=== PATIENT | male | born 1960 | race Caucasian/White ===

== ENCOUNTER → 2020-12-22 | Outpatient (CLI) | payer BC, SELFPAY ==
--- NOTE | 2020-12-22 | IMM_PTH ---
PATIENT: MARIZOL GOMEZ LOC: [facility] U#:[id number] AGE/SX: 60/M ROOM: RE12/22/[address]: Dr. Flynn Liao MD : 1960 BED: DIS: 12/22/2020 SPEC #: [id number] RECD: 12/23/20 12:27 STATUS: LILIA REOdilia #: [id number] SETH: 12/22/20 00:[address]: Flynn Liao DEPT: IMMUNOHISTOCHEMISTRY RECD BY: Soraida Garcia Tissues: A - PROSTATE RIGHT B - PROSTATE RIGHT C - PROSTATE RIGHT D - PROSTATE LEFT E - PROSTATE LEFT F - PROSTATE LEFT Procedures: 34BE12 (add) P40 (add) 34BE12 (initial) PHYSICIAN & INSTITUTION [place] [id number] SPECIMEN INFORMATION: Tissue Source: A - Right apex, B - Right mid, C - Right base, D - Left apex, E - Left mid, F - Left base Clinical Info: R97.20 Specimen Number: [id number] A-F CPT code: 37938, 94580 x11 METHODOLOGY: Deparaffinized sections of prefer/formalin-fixed tissue or PAP/DQ stained slides are incubated with monoclonal/polyclonal antibodies/oligonucleotide probes. Localization is made via biotin free immunoperoxidase method. Appropriate controls are performed and reacted as expected. Results on target cell population are indicated in the following table: RESULTS: ANTIBODY / CLONE RESULT Block A P40 (BC28) positive 34BE12 (34BE12) positive Block B P40 (BC28) negative 34BE12 (34BE12) negative Block C P40 (BC28) positive 34BE12 (34BE12) positive Block D P40 (BC28) negative 34BE12 (34BE12) negative Block E P40 (BC28) negative 34BE12 (34BE12) negative Block F P40 (BC28) negative 34BE12 (34BE12) negative These tests were developed and their performance characteristics determined by [facility]. They may not have been cleared or approved by the U.S. Food and Drug Administration. The FDA has determined that such clearance or approval is not necessary. The above immunohistochemical/dualISH markers are ordered and reviewed by the Pathologist. INTERPRETATION: A. Right prostate, apex, core biopsy: Focal high-grade prostatic intraepithelial neoplasia (HGPIN). B. Right prostate, mid, core biopsy: Adenocarcinoma. C. Right prostate, base, core biopsy: Negative for malignancy. D. Left prostate, apex, core biopsy: Adenocarcinoma. E. Left prostate, mid, core biopsy: Adenocarcinoma. F. Left prostate, base, core biopsy: Adenocarcinoma. SJ:sujata 12/24/2020
--- NOTE | 2020-12-22 08:00 | PROSBIL_PTH ---
PATIENT: MARIZOL GOMEZ LOC: [facility] U#:[id number] AGE/SX: 60/M ROOM: RE12/22/[address]: Dr. Flynn Liao MD : 1960 BED: DIS: 12/22/2020 SPEC #: [id number] RECD: 12/22/20 11:35 STATUS: LILIA GI #: [id number] SETH: 12/22/20 08:[address]: Flynn Liao DEPT: SURGICAL PATHOLOGY RECD BY: Rosa Jackman Tissues: A - PROSTATE RIGHT B - PROSTATE RIGHT C - PROSTATE RIGHT D - PROSTATE LEFT E - PROSTATE LEFT F - PROSTATE LEFT Procedures: PROSTATE BX HEADER OPERATION: Prostate biopsy PRE-OP DIAGNOSIS: R97.20 TISSUE SUBMITTED: A - Right apex, B - Right mid, C - Right base, D - Left apex, E - Left mid, F - Left base MICROSCOPIC DIAGNOSIS A. Right prostate, apex, core biopsy: Focal high-grade prostatic intraepithelial neoplasia (HGPIN). See comment. B. Right prostate, mid, core biopsy: Prostatic adenocarcinoma. Lyndon grade: 3+3=6 Number of cores involved: 1/2 Proportion of tissue involved: <5% Perineural invasion: Not identified. Greatest tumor length: 0.2 cm, discontinuous Focal high-grade prostatic intraepithelial neoplasia (HGPIN). See comment. C. Right prostate, base, core biopsy: Prostatic tissue, negative for malignancy. See comment. D. Left prostate, apex, core biopsy: A minute focus of prostatic adenocarcinoma. Lyndon grade: 3+3=6 Number of cores involved: 1/2 Proportion of tissue involved: <5% Perineural invasion: Not identified. Greatest tumor length: <0.1 cm. See comment. E. Left prostate, mid, core biopsy: A minute focus of prostatic adenocarcinoma. Tre grade: 3+3=6 Number of cores involved: 1/2 Proportion of tissue involved: <5% Perineural invasion: Not identified. Greatest tumor length: <0.1 cm. Focal high-grade prostatic intraepithelial neoplasia (HGPIN). See comment. F. Left prostate, base, core biopsy: Prostatic adenocarcinoma. Lyndon grade: 3+3=6 Number of cores involved: 2/2 Proportion of tissue involved: ~5% Perineural invasion: Not identified. Greatest tumor length: 0.2 cm Focal high-grade prostatic intraepithelial neoplasia (HGPIN). See comment. SJ:rg 12/24/2020 COMMENT A-F. Immunohistochemistry ([id number]) supports the above diagnosis. MICROSCOPIC DESCRIPTION Slides are reviewed. GROSS DESCRIPTION A - Received is one container designated prostate, right apex. The specimen consists of two elongated fragments of light herndon-white soft tissue each measuring 1.1 cm in length and 0.1 cm in diameter. The specimen is totally submitted in one cassette. B - Received is one container designated prostate, right mid. The specimen consists of two elongated fragments of light herndon-white soft tissue measuring 1 and 1.5 cm in length and 0.1 cm in diameter. The specimen is totally submitted in one cassette. C - Received is one container designated prostate, right base. The specimen consists of two elongated fragments of light herndon-white soft tissue measuring 0.5 and 1 cm in length and 0.1 cm in diameter. The specimen is totally submitted in one cassette. D - Received is one container designated prostate, left apex. The specimen consists of two elongated fragments of light herndon-white soft tissue measuring 0.5 and 1.5 cm in length and 0.1 cm in diameter. The specimen is totally submitted in one cassette. E - Received is one container designated prostate, left mid. The specimen consists of two elongated fragments of light herndon-white soft tissue each measuring 1.2 cm in length and 0.1 cm in diameter. The specimen is totally submitted in one cassette. F - Received is one container designated prostate, left base. The specimen consists of two elongated fragments of light herndon-white soft tissue each measuring 1 cm in length and 0.1 cm in diameter. The specimen is totally submitted in one cassette. / ELIZABETH:sujata 12/22/20 TC:0 CPT: 79374 x6 ADDENDUM ADDENDUM ADDENDUM ADDENDUM ADDENDUM ADDENDUM ADDENDUM ADDENDUM 06/29/2021 15:35 ADDENDUM 06/29/2021 15:35 ADDENDUM 06/29/2021 15:35 ADDENDUM 06/29/2021 15:35 ADDENDUM 06/29/2021 15:35 An order for Oncotype testing was received from Dr. Liao. This necessitated case review, block and slide selection by pathologist at [facility]. Genomic Prostate Score = 23 Results of the complete Oncotype testing ([facility] report) are viewable in EMR under: Reports - Pathology - Lab Pathology Report, Scanned.
== END | disposition home or self-care (01) ==
LOC: LABSPEC 11:26
PROVIDERS: Visit Provider Urology
DX: R97.20 Elevated prostate specific antigen [PSA] (principal)
CPT/HCPCS: 88305; 88341; 88342; G0416

== ENCOUNTER → 2021-07-05 | Outpatient (CLI) | payer BC, SELFPAY ==
--- NOTE | 2021-07-05 08:15 | MRI_ITS ---
PROSTATE MRI HISTORY/INDICATION: Elevated PSA, prostate cancer, positive biopsy TECHNIQUE: Multiplanar, multisequence imaging of the pelvis in accordance with PIRADS recommendations before and after intravenous administration of 22 mL dotatrem on a 1.5 TE platform using external phased array coil. Dedicated 3 plane small field of view T2 FSE, axial diffusion-weighted imaging with width B values 50-800 s/mm2 and calculated h=1387 s/mm2 and ADC map; and axial 3-D dynamic contrast enhanced T1 weighted images with temporal resolution in 3 mm slice thickness in addition to full pelvis postcontrast T1-weighted imaging. COMPARISON:None FINDINGS: Size: 4.7 x 5.0 x 4.9 cm (Lx W x H) cm for 59.9 cubic cm. Quality: Excellent Hemorrhage: None Peripheral zone: Mildly inhomogenous. Focal findings, as below. Transition zone: Moderate heterogeneity consistent with prostatic hyperplasia. Focal finding as below. Lesion #1: Location: right apical posterior peripheral on series 5 image 20, axial T2 Size: 0.92 x 0.67 cm T2: homogeneous, moderately hypointense without extraprostatic extension, sequence category 4/5 DWI: focal markedly hyperintense on high b-value DWI and markedly hypointense on ADC with extraprostatic extension, sequence category 4/5, image 12 series 700-701. DCE: No early enhancement, negative Prostate margin: Smooth Lesion overall PI-RADS: 4/5 Neurovascular bundles: Not involved Seminal vesicles: not involved Lymph nodes: no lymphadenopathy Bones: no osseous metastases suggested Other pelvic organs: normal MRI/Pelvis W/WO Contrast IMPRESSION: 1. PI-RADS 4 ? High (clinically significant cancer is likely to be present) . PI?RADSR v2.1 Assessment Categories PI-RADS 1 ? Very low (clinically significant cancer is highly unlikely to be present) PI-RADS 2 ? Low (clinically significant cancer is unlikely to be present) PI-RADS 3 ? Intermediate (the presence of clinically significant cancer is equivocal) PI-RADS 4 ? High (clinically significant cancer is likely to be present) PI-RADS 5 ? Very high (clinically significant cancer is highly likely to be present) Electronically Signed: Jhon Gomez MD ([place]) at 9:13 EDT Reading Location ID and State: / [place] , Service support ,
== END | disposition home or self-care (01) ==
PROVIDERS: Referring Provider Urology; Visit Provider Urology
DX: R97.20 Elevated prostate specific antigen [PSA] (principal); Z85.46 Personal history of malignant neoplasm of prostate
CPT/HCPCS: 72197; A9575; A4216

== ENCOUNTER → 2021-07-26 | Outpatient (CLI) | payer BC, SELFPAY ==
--- NOTE | 2021-07-26 | IMM_PTH ---
PATIENT: MARIZOL GOMEZ LOC: [facility] U#:[id number] AGE/SX: 60/M ROOM: RE07/26/[address]: Dr. Flynn Liao MD : 1960 BED: DIS: 07/26/2021 SPEC #: [id number] RECD: 07/28/21 12:39 STATUS: LILIA REQ #: [id number] SETH: 07/26/21 00:[address]: Flynn Liao DEPT: IMMUNOHISTOCHEMISTRY RECD BY: Soraida Garcia ENTERED: 07/28/21 12:40 SP TYPE: IMMUNO OTHR DR: Dr. Dorcas Dunn, Tissues: E - PROSTATE LEFT F - PROSTATE LEFT Procedures: 34BE12 (add) P40 (add) 34BE12 (initial) PHYSICIAN & INSTITUTION [place] [id number] SPECIMEN INFORMATION: Tissue Source: E - Left prostate, mid, core biopsy, F - Left prostate, base, core biopsy Clinical Info: Elevated PSA Specimen Number: [id number] E & F CPT code: 54271, 72921 x3 METHODOLOGY: Deparaffinized sections of prefer/formalin-fixed tissue or PAP/DQ stained slides are incubated with monoclonal/polyclonal antibodies/oligonucleotide probes. Localization is made via biotin free immunoperoxidase method. Appropriate controls are performed and reacted as expected. Results on target cell population are indicated in the following table: RESULTS: ANTIBODY / CLONE RESULT Block E P40 (BC28) negative 34BE12 (34BE12) negative Block F P40 (BC28) negative 34BE12 (34BE12) negative These tests were developed and their performance characteristics determined by [facility]. They may not have been cleared or approved by the U.S. Food and Drug Administration. The FDA has determined that such clearance or approval is not necessary. The above immunohistochemical/dualISH markers are ordered and reviewed by the Pathologist. INTERPRETATION: E. Left prostate, mid, core biopsy: Focal atypical small acinar proliferation. F. Left prostate, base, core biopsy: Adenocarcinoma. AM:sujata 07/29/2021
--- NOTE | 2021-07-26 11:30 | PROSBIL_PTH ---
PATIENT: MARIZOL GOMEZ LOC: [facility] U#:[id number] AGE/SX: 60/M ROOM: RE07/26/[address]: Dr. Flynn Liao MD : 1960 BED: DIS: 07/26/2021 SPEC #: [id number] RECD: 07/26/21 16:15 STATUS: LILIA GI #: [id number] SETH: 07/26/21 11:[address]: Flynn Liao DEPT: SURGICAL PATHOLOGY RECD BY: Rosa Jackman ENTERED: 07/27/21 08:09 SP TYPE: PROST BX SACHA DR: Dr. Dorcas Dunn DO Tissues: A - PROSTATE RIGHT B - PROSTATE RIGHT C - PROSTATE RIGHT D - PROSTATE LEFT E - PROSTATE LEFT F - PROSTATE LEFT Procedures: PROSTATE BX HEADER OPERATION: Prostate biopsy PRE-OP DIAGNOSIS: Elevated PSA TISSUE SUBMITTED: A - Right apex, B - Right mid, C - Right base, D - Left apex, E - Left mid, F - Left base MICROSCOPIC DIAGNOSIS A. Right prostate, apex, core biopsy: Adenocarcinoma. [place] grade: 7 (3+4) Cores involved: 1 out of 2 cores Tissue involved: 50% Greatest tumor length: 4 millimeters B. Right prostate, mid, core biopsy: Adenocarcinoma. Tre grade: 6 (3+3) Cores involved: 1 out of 2 cores Tissue involved: 50% Greatest tumor length: 6 millimeters Perineural invasion: Present Other findings: Focal high-grade prostatic intraepithelial neoplasia (HGPIN). C. Left prostate, base, core biopsy: Benign prostatic tissue. D. Left prostate, apex, core biopsy: Focal glandular atrophy. E. Left prostate, mid, core biopsy: Atypical small acinar proliferation. See comment. F. Left prostate, base, core biopsy: Adenocarcinoma. Tre grade: 7 (3+4) Cores involved: 1 out of 2 cores Tissue involved: 10% Greatest tumor length: 2.5 millimeters See comment. AM:sujata 07/28/2021 COMMENT E & F. Immunohistochemistry ([id number]) supports the above diagnosis. Reference is made to the patient's previous prostate biopsies from 2020 ([id number]) in which prostatic adenocarcinoma (3+3=6) was identified. MICROSCOPIC DESCRIPTION Slides are reviewed. GROSS DESCRIPTION A - Received is one container designated prostate, right apex. The specimen consists of two elongated fragments of light herndon-white soft tissue measuring 0.3 and 0.4 cm in length and 0.1 cm in diameter. The specimen is totally submitted in one cassette. B - Received is one container designated prostate, right mid. The specimen consists of two elongated fragments of light herndon-white soft tissue each measuring 0.5 cm in length and 0.1 cm in diameter. The specimen is totally submitted in one cassette. C - Received is one container designated prostate, right base. The specimen consists of two elongated fragments of light herndon-white soft tissue each measuring 1 cm in length and 0.1 cm in diameter. The specimen is totally submitted in one cassette. D - Received is one container designated prostate, left apex. The specimen consists of two elongated fragments of light herndon-white soft tissue measuring 0.6 and 1 cm in length and 0.1 cm in diameter. The specimen is totally submitted in one cassette. E - Received is one container designated prostate, left mid. The specimen consists of two elongated fragments of light herndon-white soft tissue each measuring 1.1 cm in length and 0.1 cm in diameter. The specimen is totally submitted in one cassette. F - Received is one container designated prostate, left base. The specimen consists of two elongated fragments of light herndon-white soft tissue measuring 1 and 1.5 cm in length and 0.1 cm in diameter. The specimen is totally submitted in one cassette. / SJ:rg 07/27/2021 TC:0 [facility]: [id number] x6
== END | disposition home or self-care (01) ==
LOC: LABSPEC 16:48
PROVIDERS: Visit Provider Urology
DX: C61 Malignant neoplasm of prostate (principal); N42.32 Atypical small acinar proliferation of prostate
CPT/HCPCS: 88305; 88341; 88342; G0416

== ENCOUNTER 2021-09-08 15:44 | Observation (INO) | payer BC, SELFPAY ==
--- NOTE | 2021-09-02 08:53 | EKG12_ITS ---
Test Reason : PRE-OP Blood Pressure : / mmHG Vent. Rate : 082 BPM Atrial Rate : 082 BPM P-R Int : 152 ms QRS Dur : 092 ms QT Int : 380 ms P-R-T Axes : 070 009 045 degrees QTc Int : 443 ms Normal sinus rhythm Normal ECG Confirmed by ADI INGRAM, MARIZOL ([id number]), avid editor WILLIE MALDONADO ([id number]) on 09/03/2021 11:26:07 AM Referred By: Flynn Liao Confirmed By:MARIZOL JOSHI MD
[2021-09-02 09:46] LABS: Hematocrit 47.3 % (40-54); Hemoglobin 15.7 g/dL (13.0-16.5); Mean Corp Hgb Conc 33.2 g/dL (32-36); Mean Corpuscular Hgb 29.1 pg (27.0-32.0); Mean Corpuscular Volume 87.6 fL (80-94); Mean Platelet Vol. 9.6 fl (6.2-12.0); Platelet Count 259 K/mm3 (150-450); RBC Distribution Width SD 41.3 fl (35.1-43.9)
[2021-09-02 10:11] LABS: Thyroid Stim Hormone (TSH) 0.65 uIU/mL (0.358-3.74)
[2021-09-08] VITALS (12 sets, daily range): BP systolic 102–155; BP diastolic 62–86; PULSE 79–92; RESP 16–18; TEMP 36.3–37.7; O2SAT 92–100; BMI 29.7; BMI 29.8
[2021-09-08] MEDS: Lactated Ringers 1,000 ML 15 ML IV ×2 (06:43)
[2021-09-08] MEDS: Cefazolin 2 GM in 0.9% Normal Saline 100 ML IV (07:24)
--- NOTE | 2021-09-08 07:30 | PROST_PTH ---
PATIENT: MARIZOL GOMEZ LOC: [facility] U#:[id number] AGE/SX: 61/M ROOM: [facility] [place] RE09/08/[address]: Dr. Flynn Liao MD : 1960 BED: 1 DIS: 09/09/2021 SPEC #: [id number] RECD: 09/09/21 09:13 STATUS: LILIA REOdilia #: [id number] SETH: 09/08/21 07:[address]: Flynn Liao DEPT: SURGICAL PATHOLOGY RECD BY: Teo Medina ENTERED: 09/09/21 13:27 SP TYPE: PROSTATE OTHR DR: Dr. Dorcas Dunn, DO Tissues: A - Prostate, NOS B - Adipose tissue C - Lymph node of pelvis, NOS D - Lymph node of pelvis, NOS Procedures: Surgery Specimen Level IV Surgery Specimen Level V Surgery Specimen Level HEADER OPERATION: Laparoscopic robotic radical prostatectomy, bilateral lymph nodes PRE-OP DIAGNOSIS: Prostate cancer TISSUE SUBMITTED: A ? Prostate, B ? Fat over prostate, C ? Right pelvic lymph node, D ? Left pelvic lymph node MICROSCOPIC DIAGNOSIS A. Prostate, radical prostatectomy: Prostatic adenocarcinoma. See cancer summary in the comment section. B. Fat over prostate: Negative for carcinoma. C. Right pelvic lymph nodes: Nine out of nine lymph nodes negative for metastatic carcinoma. D. Left pelvic lymph nodes: Three out of three lymph nodes negative for metastatic carcinoma. SJ:sujata 09/14/2021 COMMENT PROSTATE CANCER (RADICAL) SUMMARY: Procedure: Radical Prostatectomy Prostate Size: Weight: 71.6 gm Size: 4.5 cm transversely, 5 cm anterior-posteriorly and 4.5 cm craniocaudally Histologic Type: Acinar adenocarcinoma Histologic Grade: Grade group 2 (Tre score 3+4=7) Tumor Quantitation: Estimated percentage of prostate involved by tumor: ~5% Tumor size: Tumor involves both right (apical portion) and left lobe (apical, mid and basal portion prostate). Largest focus of tumor in right lobe measures 0.9 x 0.9 cm. Largest focus of tumor in left lobe measures 1 x 0.5 cm. Tumor is present in discontinuous manner in the left lobe. Extraprostatic Extension: Not identified Urinary Bladder Neck Invasion: Not identified Seminal Vesicle Invasion: Not identified Lymphvascular Invasion: Not identified Perineural Invasion: Present Margins: Margins uninvolved by invasive carcinoma. Treatment Effect: No known presurgical therapy. Regional Lymph Nodes: Number of lymph nodes involved by carcinoma: 0 Total number of lymph nodes examined: 12 Distant metastasis: Not applicable Additional Pathologic Findings: - Benign prostatic hyperplasia, glandular and stromal type. - Focal chronic inflammation and basal cell hyperplasia. Ancillary studies: Not performed. PATHOLOGIC STAGE: pT2 pN0 pMx The above summary is in compliance with [employer] (CAP) Cancer Protocols Checklist and [place] [employer] Committee on Cancer (AJCC), Staging Manual, 8th Ed. Please make reference to previous specimen ([id number]), right prostate apex, right prostate mid and left prostate base, core biopsies with diagnosis of ?adenocarcinoma.? MICROSCOPIC DESCRIPTION Slides are reviewed. GROSS DESCRIPTION A - Received in fixative is one container labeled with the patient's name and designated prostate. The specimen consists of a radical prostatectomy specimen consisting of prostate and bilateral seminal vesicles weighing 71.6 gm. The prostate measures 4.5 cm transversely, 5 cm anterior-posteriorly and 4.5 cm craniocaudally. The right seminal vesicle measures 2.5 x 1 x 0.5 cm and right vas deferens measures 3 cm in length and 0.7 cm in diameter. The left seminal vesicle measures 2.5 x 1.5 x 0.5 cm and the left vas deferens measures 2.5 cm in length and 0.5 cm in diameter. The prostate is inked as follows: anterior surface - yellow, posterior surface - black, right lateral surface - blue, left lateral surface - green. The bilateral seminal vesicles and vas deferens are inked as follows: Posterior surface bilateral seminal vesicle and vas deferens - black, anterior surface right seminal vesicle - blue and anterior surface right seminal vesicle - green. Sections do not reveal any obvious mass lesion. Sock Mender sections are submitted in 20 cassettes as follows: 1 - right seminal vesicle and vas deferens, 2 - left seminal vesicle and vas deferens, 3 - apical (urethral) margin, enface, 4 & 5 - bladder base margin, most basal portion of prostate, enface, 6-10 - apical portion prostate, 11-14 - middle portion prostate, 15-20 - basal portion prostate. Sections are submitted after additional fixation. B - Received in fixative is one container labeled with the patient's name and designated fat over prostate. The specimen consists of a piece of yellow adipose tissue measuring 5 x 4 x 0.4 cm. No mass lesion is identified. Sock Mender tissue is submitted in one cassette. C - Received in fixative is one container labeled with the patient's name and designated right pelvic lymph node. The specimen consists of three variable sized pieces of adipose tissue measuring in aggregate 3 x 2.5 x 1 cm. One lymph node is identified measuring 1 cm in greatest dimension. The entire specimen is submitted in three cassettes as follows: 1 ? one bisected lymph node, 2 & 3 ? rest of the specimen. D - Received in fixative is one container labeled with the patient's name and designated left pelvic lymph node. The specimen consists of a piece of adipose tissue measuring 4.5 x 2 x 0.3 cm. A possible lymph node is identified measuring 0.3 cm in greatest dimension. The entire specimen is submitted in two cassettes. Cassette 1 contains the possible lymph node. / SJ:rg 09/09/2021 TC:0 CPT: 67922, 25546 x2, 06699
--- NOTE | 2021-09-08 07:36 | HP.PCM_ITS ---
[facility] - General General Date of Admission: 09/08/21 Chief Complaint: Prostate cancer HPI Narrative MARIZOL GMOEZ, is a 61 M who presents radical prostatectomy for prostate cancer. [facility] Medical History (Updated 09/08/21 @ 07:[address] Flynn Liao MD) Arthritis Cancer Diabetes High cholesterol Leg cramps Non-smoker Prostate disease Thyroid disease Wears contact lenses Home Medications cetirizine 10 mg capsule (Zyrtec) 10 mg PO DAILY PRN ALLERGIES 09/01/21 [History Last Taken 09/07/21] cholecalciferol (vitamin D3) 25 mcg (1,000 unit) capsule (Vitamin D3) 25 mcg PO DAILY 09/01/21 [History Last Taken 09/07/21] glucosamine 750 [id number]-qwq no1 644 mg-C 30 mg-praveen 1 mg tablet (Osteo Bi-Flex Triple Strength) 1 tab PO DAILY 09/01/21 [History Last Taken 09/07/21] levothyroxine 137 mcg capsule 137 mcg PO DAILY 09/01/21 [History Last Taken 09/08/21] pravastatin 10 mg tablet 10 mg PO QHS 09/01/21 [History Last Taken 09/07/21] ciprofloxacin HCl 500 mg tablet (Cipro) 500 mg PO BID #20 tabs 09/08/21 [Rx Last Taken Unknown] docusate sodium 100 mg capsule (Colace) 100 mg PO BID #20 caps 09/08/21 [Rx Last Taken Unknown] oxycodone-acetaminophen 5 mg-325 mg tablet 1 tab PO Q6H PRN pain 7 days #14 tabs 09/08/21 [Rx Last Taken Unknown] Allergy/AdvReac Type Severity Reaction Status Date / Time DUCK EGGS AdvReac Nausea/Vom/ Uncoded 09/01/21 08:16 Diarrhea Surgical History (Updated 09/01/21 @ 08:25 by Chela Fung) Hx of blepharoplasty Social History Smoking Status: Never smoker ROS Constitutional Constitutional: Denies chills, fever(s) or malaise Eyes Eyes: Denies blurry vision or change in vision ENT HEENT: Reports none Cardiovascular Cardiovascular: Denies chest pain or palpitations Respiratory/Chest Respiratory/Chest: Denies cough or shortness of breath with exertion Gastrointestinal Gastrointestinal: Denies abdominal pain, constipation or diarrhea Musculoskeletal Musculoskeletal: Denies back pain, joint stiffness or joint swelling Integumentary Integumentary: Denies dry skin, jaundice, lesions or rash Neurologic Neurologic: Denies confusion, syncope or weakness Psychiatric Psychiatric: Reports none; Denies anxiety or depression Endocrine Endocrinology: Denies excessive sweating, fatigue or flushing Hematologic/Lymphatic Hematologic/Lymphatic: Denies anemia, easy bleeding or easy bruising Vital Signs Vital Signs Vital Signs: 09/08/21 06:27 09/08/21 06:27 Temperature 99.9 F H Temperature Source Temporal Pulse Rate 83 Respiratory Rate 16 Respiratory Pattern Normal Blood Pressure 155/86 H Blood Pressure Mean 109 Blood Pressure Source Monitor Blood Pressure Position Semi-Fowlers Blood Pressure Location Left Arm Pulse Ox 100 Oxygen Delivery Method Room Air Weight Weight: 111 kg Body Mass Index (BMI) 29.7 Physical Exam Const alert and oriented x3 General Appearance: cooperative HEENT normocephalic, head/scalp atraumatic, EAC's normal and TM's normal bilaterally Eyes PERRL and EOMs intact bilaterally Pupil: sluggish Neck no lymphadenopathy, supple and no JVD General: trachea midline Lymph Lymphatic: no lymphadenopathy noted, lymphedema and lymphadenopathy Resp normal respiratory effort, normal air movement and clear to auscultation bi laterally Cardio regular rate, regular rhythm and peripheral pulses 2+ throughout GI soft to palpation, non-tender and non-distended Extremity normal capillary refill and no clubbing, cyanosis or edema General Extremity: no tenderness to palpation of joints or extremities Skin no rashes or lesions noted General Skin Exam: turgor normal Lesions: no lesions Rashes: no rashes Neuro CN's II-XII intact bilaterally Speech: speech normal Motor Exam: strength 5/5 throughout; Negative for general weakness Psych thought process normal, cooperative and affect normal Appearance: appropriate Results Lab / Micro Data Result Diagrams: 09/02/21 09:02 Assessment & Plan Assessment/Plan (1) Cancer: PLAN: Plan Plan for radical prostatectomy bilateral nerve sparing.
--- NOTE | 2021-09-08 07:37 | PCM.DC ---
Discharge Instructions Diet Discharge Diet: Light diet - advance as tolerated and Soft diet Activity Discharge Activity: May Shower Return to work on:: 10/13/21 May shower in (days): 1 May resume sexual activity in: 6-8 weeks Lifting Restrictions: no lifting for 6 weeks. Dressing / Incision Call your doctor if your incision/area has: Foul Smelling Discharge and Swelling at the incision site Call your doctor if you observe: Fever of 101 or Higher Cleanse incision/area with: Keep Dressing Clean & Dry Catheter: Powell to leg bag and Powell to large bag Drain: [facility] Follow Up Care Please Follow Up With: Flynn Liao MD When: Next to remove powell. Test Results: Test results from this visit will be discussed in further detail at your follow-up appointment, if applicable. Discharge Plan Admission Primary Reason for Your Visit: Robotic Radical Prostatectomy Attending Provider: Flynn Liao Primary Care Provider: Dorcas Dunn Discharge Orders/Prescriptions Prescriptions: New ciprofloxacin HCl [Cipro] 500 mg tablet 500 mg PO BID Qty: 20 0RF docusate sodium [Colace] 100 mg capsule 100 mg PO BID Qty: 20 0RF oxycodone-acetaminophen 5-325 mg tablet 1 tab PO Q6H PRN (Reason: pain) 7 Days Qty: 14 0RF Continued pravastatin 10 mg Tablet 10 mg PO QHS cholecalciferol (vitamin D3) [Vitamin D3] 25 mcg (1,000 unit) Capsule 25 mcg PO DAILY Zyrtec 10 mg Capsule 10 mg PO DAILY PRN (Reason: ALLERGIES) levothyroxine 137 mcg Capsule 137 mcg PO DAILY Osteo Bi-Flex Triple Strength 750 mg-644 mg- 30 mg-1 mg Tablet 1 tab PO DAILY Referrals / Follow Up: Flynn Liao MD [STAFF PHYSICIAN] - Dorcas Dunn DO [Primary Care Provider] - Disposition Disposition (needs filled in before D/C Order can be placed): Home, Self Care
--- NOTE | 2021-09-08 12:13 | OP.PCM_ITS ---
Report of Operation Date of Procedure: 09/08/21 Pre-Operative Diagnosis: Prostate cancer and direct right inguinal hernia Post-Operative Diagnosis: Same Surgery/Procedure Performed:: Laparoscopic robotic assisted radical prostatectomy with bilateral nerve sparing and bilateral pelvic extended lymph node dissection and repair of direct right inguinal hernia Description of Surgical Findings:: Patient presented to the hospital for treatment of his prostate cancer with radical prostatectomy. In the preoperative setting we discussed the options of management for his prostate cancer including active surveillance, radiation treatments, radioactive seeds, and radical robotic prostatectomy. We discussed the side effects of surgery including the potential to lose erections. We discussed the potential to have bladder control problems with stress incontinence which can be temporary or permanent. We discussed the risk of the surgery including the risk of general anesthetic, risk of bleeding, risk of infection, and risk of formation of hernia either incisional hernia or inguinal hernia. After long discussion with the patient the preoperative setting and also reviewed this in the preop area patient signed the consent form and we pro ceeded with a radical prostatectomy. Patient was taken back to the operating room he was identified, time out procedure was performed and he was placed supine on the table he underwent general anesthesia with intubation. The abdomen was shaved prepped and draped in usual sterile fashion as well as the penis and testicles. A 16 [place] catheter was placed into the bladder with clear return of urine. I then made an incision in the umbilicus and dissected down to the fascia advance a Veress needle into the peritoneal cavity and insufflated the peritoneal cavity with CO2 gas. I then placed a 12 mm trocar above the umbilicus. I then visualized the placement of the rest of the trochars, I placed a right arm robotic trocar, and air seal trocar, a suction port 5 mm trocar. And on the left side I placed 2 robotic arms. Once all the trochars were in placed the patient was put in steep Trendelenburg. And the robot was docked the arms were docked and then I placed the 0 degree camera through the robotic arm and also used a 30 degree camera during certain parts of the case. I used scissors in the right arm, prograsp in the third arm, and a bipolar in the second arm. Initial dissection was to free the sigmoid colon off the lateral wall this was done by meticulously dissecting off the peritoneum and the sigmoid colon off the left lateral wall. This then allowed the prograsp to retract the sigmoid colon out of the pelvis. I then went below the bladder and identified the vas deferens incised the peritoneum over the vas deferens and traced the vas deferens below the bladder to the prostate and identified the right and left vasa deferens. Below behind the vas deferens then the seminal vesicles were identified. I then dissected the seminal vesicle free using pinpoint electrocautery and then we identified the other seminal vesicle and then dissected this using pinpoint electrocautery I then elevated the vas deferens and several vesicles off the prostate and was able to sweep the Denonvilliers' fascia off the prostate posteriorly all the way up to the apex of the prostate. Working laterally I made sure I went as lateral as possible to sweep the Denonilliers' fascia off the posterior aspect of the prostate and worked my way back, I then transected the vas deferens and the left and right side the seminal vesicles were then dissected free. And then I pulled out of the pelvis. At this point the bladder was dropped creating the space of Retzius with the bladder on traction with the fourth arm. Using electrocautery I dissected in the anterior peritoneal fascia and then created the space of Retzius dissecting towards the prostate. The pelvic lymph node dissection was then performed both on the left and the right pelvic lymph nodes the nodes that were taken on the right side extended from the right iliac artery lateral pelvic sidewall up to the junction of the artery and the lymph nodes and down to the obturator nerve and then also below the screener and blender operator nerve all the lymph nodes were removed during to remove those lymph nodes we used clips and electrocautery to control small blood vessels and also the control lymphatic. I then went to the left side and again did an extensive lymph node dissection starting of the left iliac artery extending the left iliac vein on the lateral sidewall down to the obturator nerve and the left side beyond the screener and blender operator nerve down further behind it cleaning out all the lymphatic tissue all this tissue was sent off as a specimen we use clips and electrocautery during the dissection. At the end we cleaned out all the lymph atic tissue on the right pelvic wall and no lymphatic tissue in the left pelvic wall. The prostate was then cleaned of the fat over the prostate and the fourth arm was used to retract the bladder and place traction. I then identified the endopelvic fascia that was overlying the prostate on the right side I incised endopelvic fascia and wwept the levator muscles off the prostate all the way to the apex on the right side, I then worked my way anterior to the prostate then transected to the puboprostatic ligament and the underlying dorsal vein complex was not injured. I then went to the other side and identified the endopelvic fascia in the left side incised in a fashion the left side and swept the levator muscles off the prostate on the left side all the way up to the apex the puboprostatic ligament on the left side was then dissected and transected I then freed up the fascia overlying the dorsal vein complex. I then used the prograsp to encircled the dorsal vein complex with the prograsp and then switched over to the right and left needle regional refrigerated cdl truck driver and suture ligated the dorsal vein complex above the prograsp. The prograsp was then placed back in the bladder and put back on traction I then identified the junction between the bladder and the prostate and dissected down between the bladder and the prostate untilI came across the catheter we then dissected posteriorly to the bladder and prostate to free the prostate and the bladder off each other and the muscles between the bladder and the prostate was then cauterized to free up the bladder. I then went on top of the prostate and identified the endopelvic fascia on top of the prostate this was incised all the way to the apex and then we swept the endopelvic fascia off the prostate laterally and then identified the plane between endopelvic fascia and the prosthetic pseudocapsule and swept the fascia laterally until reaching the course of the neurovascular bundles and then released the neurovascular bundles off the prostate laterally all the way back in a retrograde fashion back to the junction of the pedicles then the prostate was placed on traction with the fourth arm pulling the prostate laterally identified the pedicle to the prostate between the seminal vesicles and the and the neurovascular bundle and this was taken using sequential small hemolocks. After the pedicle was taken the I then dissected underneath the prostate sweeping the neurovascular bundle off the prostate we able to follow the nice smooth plane between the neurovascular bundle and the pseudocapsule all the way to the apex once this was identified we swept this up all the way up to the apex and there was perfect nerve sparing on the right side. Then went to the left side the prostate identified the endopelvic fascia over the left side of the prostate I incised the endopelvic fascia all the way to the apex and then swept this off laterally I then released the neurovascular bundles on the left side of the prostate sweeping him off the prostate laterally I then elevated the prostate up up with the prostate and traction identified the pedicle to the prostate on the left side and then the pedicles taken with sequential Hem-o-teresa clips I then was able to dissected the neurovascular bundle off the left posterior aspect the prostate this was a perfect dissection all the way up on the left side following the pseudocapsule all the way up the left side until we reached the apex of the prostate. After the both the neurovascular bundles has been swept off the posterior to the prostate I then went above and transected the dorsal vein complex there was minimal to no bleeding but then dissected down to the urethra and circumfencial dissected around the urethra I then switched the right and left arm with the needle drivers and I suture-ligated the dorsal vein complex again just to ensure that there was no bleeding from the dorsal vein complex. I then transected through the urethra with scissors and the prostate was then freed and released off the prostate bed and put an Endo Catch bag. At this point the bladder neck was reconstructed and then an anastomosis was performed between the prostate and the bladder with a 3 oh V-Loc stitch in a running fashion starting from the bladder neck at the 6 o'clock position working to the 12 o'clock position with continuous stitches to complete a perfect anastomosis between the bladder and the prostate. I then placed a new catheter into the bladder, an 18 [place] nome tip catheter flushed the bladder and there was no leakage from the anastomosis I put 10 cc in the balloon and pulled it up pulled back gently. I then ensured that there was no bleeding from the dorsal vein complex no bleeding from the neurovascular bundles FloSeal was placed as necessary once hemostasis was ensured and adequate then I placed the bladder back in position in the pelvis the prostate was exchanged to the camera port I closed the air seal port with a 10 12 Mikey Chan stitch. Once the anastomosis was complete then I inspected the direct inguinal hernia we placed a small mesh plug into the hernia and once that was accomplished then I read attached the bladder flap peritoneum back over the mesh plug using V-Loc stitches 3 oh. We ran from the base on the left side working all the way up to the middle and all the way down the right side to reattach the peritoneum over the mesh and then reattach the bladder flap up so that the peritoneum was replaced in the proper position after the hernia repair was then completed I then proceeded with the extracted the prostate through the umbilicus. The robot was undocked all the ports were removed under direct visualization then closed the extraction site with 0 Vicryl with a CT1 needle once the extraction site was closed. I then closed all the incision with subcuticular stitches with 4-0 Monocryl and then bandages were placed on the incisions catheter was flushed to make sure it was draining well there was no clots and it was crystal clear patient's anesthetic was reversed he was extubated and taken back to the PACU in stable condition all the needles and sponges and instruments were accounted for. Blood loss was minimal and the drain was a 18 [place] Powell catheter. No other surgical drain was left. I was present during the entire case. Surgeon: Flynn Liao Type of Anesthesia: General Drains: 20fr powell Estimated Blood Loss (mL): 500cc Complications none Admit VTE Documentation VTE Present on Admission: No VTE Mechan Device Prophylaxis: SCD's
[2021-09-08] MEDS: Bupivacaine Mpf 0.5% 30 ML VIAL (12:15)
[2021-09-08] MEDS: Sodium/Calcium/Mag/Potassium 15 ML Bottle EACH EYE (14:02)
--- NOTE | 2021-09-08 15:52 | CHAPLAIN ---
Type of Pastoral Visit _x__ Initial Visit ___ Follow-up Visit ___ On-call Visit ___ General Patient Visit ___ Spiritual Assessment ___ Family Conference ___ Bereavement ___ Rapid Response ___ Code Blue ___ Other (describe below) Pastoral Care Referral From _x__ Patient ___ Family ___ Nurse ___ Physician ___ Improvement Specialist ___ Physician General Practice ___ Other (describe below) Sacrament/Intervention ___ Active listening ___ Anointing ___ Judaism ___ Bereavement ___ Communion ___ Adwoa exploration ___ ___ Life review _x__ Prayer ___ Reconciliation ___ Sacrament of Sick _x__ Supportive presence ___ Wedding ___ Other (describe below) Pastoral Comments met with patient's during surgery for support; visit with patient post surgery; pt is awake but feeling effects of recovery and medications; offer of support to patient and spouse; prayer and presence welcomed; no further needs
[2021-09-08] MEDS: Lactated Ringers 1,000 ML 150 ML IV ×2 (16:00→23:03)
[2021-09-08] MEDS: Ketorolac 15 MG/ML Vial IV ×2 (17:42→23:02)
--- NOTE | 2021-09-08 18:58 | NURSING ---
@ 1742 THIS NURSE GAVE PT SCHEDULED DOSE OF TYLENOL FOR 1800-@ 1750 PT WAS ASSISTED INTO HIGH FOWLERS POSITION AND ASSISTED TO EDGE OF BED, PT APPEARED TO PASS OUT ONTO NURSE RIGHT SHOULDER-PT ASSISTED BACK TO LYING POSITION IN BED, PT APPEARED TO BE UNCONSCIOUS FOR POSSIBLE 15 SECONDS AND THEN WAS RESPONSIVE AND ABLE TO ANSWER NAME, LOCATION, YEAR-PT WAS SLEEPY AFTER THIS INCIDENT BUT WAS SLEEPY PRIOR TO THIS INCIDENT- AT BESIDE-PT AROUSABLE-DR ISSA PAGED TO UPDATE
[2021-09-08] MEDS: Lactated Ringers 1,000 ML 999 ML IV (19:58)
[2021-09-08] MEDS: Neomycin/Bacitracin/Polymyxin Opth. Ointment 1 APPLIC LEFT EYE ×2 (19:58→23:02)
[2021-09-09 01:00] VITALS: BP 143/74; PULSE 96; RESP 17; TEMP 37; O2SAT 98
[2021-09-09] MEDS: Ketorolac 15 MG/ML Vial IV ×2 (05:15→12:26)
[2021-09-09] MEDS: Lactated Ringers 1,000 ML 150 ML IV (05:15)
[2021-09-09] MEDS: Neomycin/Bacitracin/Polymyxin Opth. Ointment 1 APPLIC LEFT EYE ×2 (05:16→09:06)
[2021-09-09] MEDS: Levothyroxine 137 MCG Tablet PO (05:16)
[2021-09-09 06:00] VITALS: BP 126/61; PULSE 88; RESP 18; TEMP 36.9; O2SAT 97
--- NOTE | 2021-09-09 07:27 | PCM.PN.GU ---
Subjective Subjective Status post radical prostatectomy, he has a corneal abrasion to the left eye giving eyedrops and that is getting better he also has some numbness in the right hand thumb first finger and middle finger are numb he says ring finger and pinky are not numb in the right hand he had some prior issues with his elbow in the past without some pain there before not sure if this is positional but we will just watch this hopefully will return with time Plan to discharge home today with a Mares catheter we will see him next week in the office placed a call to make an appointment next week to remove the catheter he go home with a leg bag during the daytime and large bag at night soft diet he can shower no driving this was told to the patient and he was also given instructions to follow-up next week. Objective Data Objective Data Vital Signs: Vital Signs Temp Pulse Resp BP Pulse Ox O2 Del Method O2 Flow Rate 98.4 F 88 18 126/61 H 97 Room Air 94 09/09/21 06:00 09/09/21 06:00 09/09/21 06:00 09/09/21 06:00 09/09/21 06:00 09/09/21 06:00 09/08/21 14:00 Oxygen Flow Rate (L/min) 94 Oxygen Delivery Method Room Air Weight: 111.13 kg Body Mass Index (BMI) 29.8 Intake & Output: Intake and Output for Last 24 Hours 09/07/21 09/08/21 09/09/21 23:59 23:59 23:59 Intake Total 6261.75 / 6261.75 1405 / 1405 Output Total 1080 / 1080 235 / 235 Balance 5181.75 / 5181.75 1170 / 1170 Lab / Micro Data Result Diagrams: 09/02/21 09:02
[2021-09-09 08:43] VITALS: BP 137/62; PULSE 100; RESP 16; TEMP 37.3; O2SAT 97
== END 2021-09-09 13:17 | disposition home or self-care (01) ==
LOC: SDC 15:53 → MS3 15:53
PROVIDERS: Anesthesiology; Admitting Provider Urology; Referring Provider Urology; Visit Provider Urology
PROC: 0VT04ZZ Resection of Prostate, Percutaneous Endoscopic Approach (ICD-10-PCS; CPT 55866; principal; 2021-09-08 07:10)
DX: C61 Malignant neoplasm of prostate (principal); E11.9 Type 2 diabetes mellitus without complications; K40.90 Unilateral inguinal hernia, without obstruction or gangrene, not specified as recurrent; E78.00 Pure hypercholesterolemia, unspecified; E03.9 Hypothyroidism, unspecified; Z79.899 Other long term (current) drug therapy; Z79.890 Hormone replacement therapy; M19.90 Unspecified osteoarthritis, unspecified site; S05.02XA Injury of conjunctiva and corneal abrasion without foreign body, left eye, initial encounter; X58.XXXA Exposure to other specified factors, initial encounter; Y93.9 Activity, unspecified; Y99.9 Unspecified external cause status; Y92.9 Unspecified place or not applicable
CPT/HCPCS: 49650; 55866; 00865; 36415; 84443; 85027; 86850; 86900; 86901; 88304; 88305; 88307; 88309; 93005; 96361; 96374; 96376; 99218; J7120; C1781; G0378; J2405

== ENCOUNTER 2021-09-17 13:56 | Emergency (ER) | payer BC, SELFPAY ==
[2021-09-17 13:57] VITALS: BP 149/79; PULSE 87; RESP 16; TEMP 35.7; O2SAT 99; BMI 29.8
--- NOTE | 2021-09-17 14:17 | NURSING ---
FAXED [facility] RELEASE OF INFO FOR CAT SCAN AND LABS FROM YESTERDAY
--- NOTE | 2021-09-17 14:29 | EDS_ITS ---
HPI <Dr. Alexis Reaves MD - Last Filed: 09/17/21 16:20> History of Present Illness Chief Complaint: Complaint Informant: patient Narrative Narrative: Patient comes in with complaint of abdominal pain. This patient had radical prostatectomy and inguinal herniorrhaphy [address] Liao[address] He was doing very well. He really was not even taking any pain meds. He followed up in the office yesterday. He had the catheter removed. Several hours later he started getting abdominal pain. He tried an enema which produced a large bowel movement but really did not change his symptoms. He went into [place] emergency department last night. He had received doses of pain meds. He had CAT scan and blood work done. He was diagnosed with UTI and sent home. He states the pain is not as bad today but it still present and it seems to be increasing again. He has episodes where it suddenly starts and gets bad and then it calms down a bit. It is mostly lower abdomen but there is some diffuse component. He has been eating and drinking well has not been having fevers. He does note that his urine output is a little bit down today. He called his urologist who referred him in here. He also called and I spoke with him. He feels that due to the timing of this, great healing after surgery and starting symptoms after Mares removal this is likely a urinary leak. Recommended placement of a 16-18 Algerian well-lubricated noncoud? Mares. I will also try to obtain copies of the CT and blood work from yesterday. I will repeat some blood work to make sure he does not have worsening renal function. [facility] <Dr. Alexis Reaves MD - Last Filed: 09/17/21 16:20> [facility] Medical History Arthritis Cancer Diabetes High cholesterol Leg cramps Non-smoker Prostate disease Thyroid disease Wears contact lenses Home Medications cetirizine 10 mg capsule (Zyrtec) 10 mg PO DAILY PRN ALLERGIES 09/01/21 [History Last Taken 09/07/21] cholecalciferol (vitamin D3) 25 mcg (1,000 unit) capsule (Vitamin D3) 25 mcg PO DAILY 09/01/21 [History Last Taken 09/07/21] glucosamine 750 [id number] 644 mg-C 30 mg-praveen 1 mg tablet (Osteo Bi-Flex Triple Strength) 1 tab PO DAILY 09/01/21 [History Last Taken 09/07/21] levothyroxine 137 mcg capsule 137 mcg PO DAILY 09/01/21 [History Last Taken 09/08/21] pravastatin 10 mg tablet 10 mg PO QHS 09/01/21 [History Last Taken 09/07/21] ciprofloxacin HCl 500 mg tablet (Cipro) 500 mg PO BID #20 tabs 09/08/21 [Rx Last Taken Unknown] docusate sodium 100 mg capsule (Colace) 100 mg PO BID #20 caps 09/08/21 [Rx Last Taken Unknown] oxycodone-acetaminophen 5 mg-325 mg tablet 1 tab PO Q6H PRN pain 7 days #14 tabs 09/08/21 [Rx Last Taken Unknown] Allergy/AdvReac Type Severity Reaction Status Date / Time DUCK EGGS AdvReac Nausea/Vom/ Uncoded 09/17/21 13:59 Diarrhea Surgical History Hx of blepharoplasty Social History Smoking Status: Never smoker ROS <Dr. Alexis Reaves MD - Last Filed: 09/17/21 16:20> ROS ED Constitutional Constitutional ED: Denies fever(s) or subjective Eyes Eyes: Denies change in vision ENT ENT ED: Denies rhinorrhea or sore throat Cardiovascular Cardiovascular: Denies chest pain Respiratory/Chest Respiratory/Chest: Denies cough, dyspnea or dyspnea on exertion Gastrointestinal Gastrointestinal: Reports abdominal pain; Denies vomiting Genitourinary Genitourinary ED: Reports other Details: Decreased urine volume ; Denies dysuria, hematuria or urinary frequency Musculoskeletal Musculoskeletal: Reports other Details: Patient may have had just a small amount of back discomfort. Integumentary Denies abscess Neurologic Neurologic: Denies paresthesias Psychiatric Psychiatric: Denies anxiety Endocrine Endocrinology: Denies polydipsia or polyuria Hematologic/Lymphatic Hematologic/Lymphatic: Denies easy bleeding or easy bruising Allergic/Immunologic Allergic/Immunologic ED: Denies urticaria EXAM <Dr. Alexis Reaves MD - Last Filed: 09/17/21 16:20> Physical Exam Const Vital Signs: 09/17/21 13:57 07/08/22 16:00 Temperature 96.2 F L Temperature Source Temporal Pulse Rate 87 88 Respiratory Rate 16 18 Blood Pressure 149/79 H Blood Pressure Mean 102 Pulse Ox 99 Oxygen Delivery Method Room Air Positive well nourished and well developed General Appearance ED: well developed <Andi Harmon MD - Last Filed: 09/17/21 17:31> Physical Exam Const Vital Signs: 09/17/21 13:57 09/17/21 16:00 Temperature 96.2 F L Temperature Source Temporal Pulse Rate 87 88 Respiratory Rate 16 18 Blood Pressure 149/79 H Blood Pressure Mean 102 Pulse Ox 99 Oxygen Delivery Method Room Air MDM <Dr. Alexis Reaves MD - Last Filed: 09/17/21 16:20> [facility] MDM Narrative Medical decision making narrative: Bedside bladder scanner was not reading well. It only read 40 cc which we feel is not likely true. Patient had a 16 Algerian noncoud? catheter placed. He was placed on first attempt very easily with good clear urine that came out. No blood no clots. No cloudiness. He put out about 400 cc right away. He is feeling a little bit better now. White count showed mild elevation at 12.8. He was 9.9 yesterday. Hemoglobin was 11.3 and he was 10.3 yesterday. Creatinine was elevated at 2.06. This was higher than 1.14 yesterday. He glucose was essentially unchanged. Urinalysis is pending. Yesterday it showed blood negative nitrites negative leukocyte Estrace and 0-5 white cells with loaded red cells. CT scan from yesterday showed mixed density material involving the prostate bed and extending symmetrically to the surrounding the bladder and was felt to be postoperative with some swelling edema. There were small areas of hemorrhage were not completely excluded. This mixed density material was also extending in the right inguinal area. There was a small amount of air within the bladder lumen. I am waiting for today's UA that we will draw off the Mares. Dr. Liao is planning to call back when he is off of his flight. I discussed options with the patient and his . If he is still having pain concerns we might have to admit him but he is doing much better now. If we admitted him we might have to get him up to [place] as we do not have urologic coverage at this time. But we will discussed the case with the patient, his and his urologist when he calls back. 16: 00 patient is feeling much better. He has had about 500 cc total out. He still having good urine output. No bleeding. Urine is somewhat dark. His creatinine is up. He admits to not really drinking much since the pain started yesterday afternoon. I will give him some fluids here. He is feeling much better. His abdomen is softer. He is not having the sharp pains anymore. I will talk with his urologist. I think we may be able to get him home at this time. Lab Data Labs: Laboratory Results - last 24 hr 09/17/21 09/17/21 09/17/21 14:45 14:45 15:23 WBC 12.8 H RBC 3.89 L Hgb 11.3 L Hct 35.8 L MCV 92.0 MCH 29.0 MCHC 31.6 L RDW Std Deviation 47.2 H RDW Coeff of Fina 14.2 Plt Count 457 H MPV 8.6 Immature Gran % (Auto) 1.300 H Neut % (Auto) 86.8 H Lymph % (Auto) 4.5 L Terrell % (Auto) 7.1 Eos % (Auto) 0.1 Baso % (Auto) 0.2 Absolute Neuts (auto) 11.1 H Absolute Lymphs (auto) 0.58 L Nucleated RBC % 0 Differential Comment SEE COMMENT Platelet Estimate SLT INC RBC Morphology N CHROM Anisocytosis RARE Macrocytosis RARE Sodium 134 L Potassium 4.4 Chloride 102 Carbon Dioxide 26.0 Anion Gap 6 BUN 21 H Creatinine 2.06 H Estim Creat Clear Calc 47.40 Est GFR (MDRD) Af Amer 43 L Est GFR (MDRD) Non-Af 35 L BUN/Creatinine Ratio 10.2 Glucose 182 H Calcium 8.1 L Total Bilirubin 0.90 AST 18 ALT 22 Alkaline Phosphatase 67 Total Protein 7.1 Albumin 2.8 L Globulin 4.3 H Albumin/Globulin Ratio 0.7 L Urine Color Yellow Urine Clarity Sl Cldy Urine pH 6.0 Ur Specific [place] 1.015 Urine Protein 30 H Urine Glucose (UA) Normal Urine Ketones Negative Urine Occult Blood 250 H Urine Nitrite Negative Urine Bilirubin Negative Urine Urobilinogen Normal Ur Leukocyte Esterase 25 H Urine RBC 0-5 SEEN Urine WBC 0 SEEN Ur Squamous Epith Cells 0 SEEN Urine Bacteria 0 SEEN Urine Mucus 0 SEEN <Andi Harmon MD - Last Filed: 09/17/21 17:31> [facility] MDM Narrative Medical decision making narrative: Bedside bladder scanner was not reading well. It only read 40 cc which we feel is not likely true. Patient had a 16 [place]ian noncoud? catheter placed. He was placed on first attempt very easily with good clear urine that came out. No blood no clots. No cloudiness. He put out about 400 cc right away. He is feeling a little bit better now. White count showed mild elevation at 12.8. He was 9.9 yesterday. Hemoglobin was 11.3 and he was 10.3 yesterday. Creatinine was elevated at 2.06. This was higher than 1.14 yesterday. He glucose was essentially unchanged. Urinalysis is pending. Yesterday it showed blood negative nitrites negative leukocyte Estrace and 0-5 white cells with loaded red cells. CT scan from yesterday showed mixed density material involving the prostate bed and extending symmetrically to the surrounding the bladder and was felt to be postoperative with some swelling edema. There were small areas of hemorrhage were not completely excluded. This mixed density material was also extending in the right inguinal area. There was a small amount of air within the bladder lumen. I am waiting for today's UA that we will draw off the Mares. Dr. Liao is planning to call back when he is off of his flight. I discussed options with the patient and his . If he is still having pain concerns we might have to admit him but he is doing much better now. If we admitted him we might have to get him up to [place] as we do not have urologic coverage at this time. But we will discussed the case with the patient, his and his urologist when he calls back. 16: 00 patient is feeling much better. He has had about 500 cc total out. He still having good urine output. No bleeding. Urine is somewhat dark. His creatinine is up. He admits to not really drinking much since the pain started yesterday afternoon. I will give him some fluids here. He is feeling much better. His abdomen is softer. He is not having the sharp pains anymore. I will talk with his urologist. I think we may be able to get him home at this time. Dr. Reodica: Patient endorsed to me by Dr. Reaves to discuss the patient with Dr. Liao. He would like the patient placed on antibiotics for 10 days, and discharged with a Mares catheter in place. He will see him as an outpatient in 10 days and would like him on antibiotics. In discussion with the patient and his , patient has a leg bag at home. He is already on antibiotics that he started today from [place]. He is taking cefpodoxime twice a day. I do feel this would be sufficient as I was going to put him on Keflex at the urologist request. I feel he can be discharged safely home with follow-up to urology in 10 days. Return instructions to the emergency department were reviewed. Disposition is discharged home in stable condition. Patient and his are comfortable with the plan. Lab Data Labs: Laboratory Results - last 24 hr 09/17/21 09/17/21 09/17/21 14:45 14:45 15:23 WBC 12.8 H RBC 3.89 L Hgb 11.3 L Hct 35.8 L MCV 92.0 MCH 29.0 MCHC 31.6 L RDW Std Deviation 47.2 H RDW Coeff of Fina 14.2 Plt Count 457 H MPV 8.6 Immature Gran % (Auto) 1.300 H Neut % (Auto) 86.8 H Lymph % (Auto) 4.5 L Terrell % (Auto) 7.1 Eos % (Auto) 0.1 Baso % (Auto) 0.2 Absolute Neuts (auto) 11.1 H Absolute Lymphs (auto) 0.58 L Nucleated RBC % 0 Differential Comment SEE COMMENT Platelet Estimate SLT INC RBC Morphology N CHROM Anisocytosis RARE Macrocytosis RARE Sodium 134 L Potassium 4.4 Chloride 102 Carbon Dioxide 26.0 Anion Gap 6 BUN 21 H Creatinine 2.06 H Estim Creat Clear Calc 47.40 Est GFR (MDRD) Af Amer 43 L Est GFR (MDRD) Non-Af 35 L BUN/Creatinine Ratio 10.2 Glucose 182 H Calcium 8.1 L Total Bilirubin 0.90 AST 18 ALT 22 Alkaline Phosphatase 67 Total Protein 7.1 Albumin 2.8 L Globulin 4.3 H Albumin/Globulin Ratio 0.7 L Urine Color Yellow Urine Clarity Sl Cldy Urine pH 6.0 Ur Specific [place] 1.015 Urine Protein 30 H Urine Glucose (UA) Normal Urine Ketones Negative Urine Occult Blood 250 H Urine Nitrite Negative Urine Bilirubin Negative Urine Urobilinogen Normal Ur Leukocyte Esterase 25 H Urine RBC 0-5 SEEN Urine WBC 0 SEEN Ur Squamous Epith Cells 0 SEEN Urine Bacteria 0 SEEN Urine Mucus 0 SEEN Discharge Plan Triage Chief Complaint: Complaint ED Provider: Alexis Reaves Dx/Rx/DC Orders Clinical Impression: Abdominal pain, Urinary leakage, Creatinine elevation, Acute urinary retention Instructions: ED Mares Catheter, Care Prescriptions: No Action pravastatin 10 mg Tablet 10 mg PO QHS cholecalciferol (vitamin D3) [Vitamin D3] 25 mcg (1,000 unit) Capsule 25 mcg PO DAILY Zyrtec 10 mg Capsule 10 mg PO DAILY PRN (Reason: ALLERGIES) levothyroxine 137 mcg Capsule 137 mcg PO DAILY Osteo Bi-Flex Triple Strength 750 mg-644 mg- 30 mg-1 mg Tablet 1 tab PO DAILY ciprofloxacin HCl [Cipro] 500 mg tablet 500 mg PO BID Qty: 20 0RF docusate sodium [Colace] 100 mg capsule 100 mg PO BID Qty: 20 0RF oxycodone-acetaminophen 5-325 mg tablet 1 tab PO Q6H PRN (Reason: pain) 7 Days Qty: 14 0RF Primary Care Provider: Dorcas Dunn Referrals: Flynn Liao MD [STAFF PHYSICIAN] - As soon as possible Dorcas Dunn DO [Primary Care Provider] -
[2021-09-17] MEDS: Ondansetron 4 MG/2 ML Vial IV (14:42)
[2021-09-17] MEDS: Lidocaine Jelly 2% 20 ML Syringe (URO-JET) 1 APPLIC TOPICAL (14:42)
[2021-09-17] MEDS: Morphine 4 MG/ML Syringe IV (14:42)
[2021-09-17 14:51] LABS: Absolute Lymphocyte Count 0.58 X10^3/uL (0.83-4.51); Absolute Neutrophil Count 11.1 X10^3/uL (2.0-7.7); Basophil# 0.03 X10^3/uL; Basophil% 0.2 % (0-1); Eosinophil# 0.01 X10^3/uL; Eosinophils% 0.1 % (0-5); Hematocrit 35.8 % (40-54); Hemoglobin 11.3 g/dL (13.0-16.5); Lymphocyte # 0.58 X10^3/ul (0.83-4.51); Lymphocyte % 4.5 % (19-41); Mean Corp Hgb Conc 31.6 g/dL (32-36); Mean Platelet Vol. 8.6 fl (6.2-12.0); Monocyte% 7.1 % (0-10); NRBC Flagged by Analyzer 0 % (0-5); Neutrophil # 11.08 X10^3/uL (2.7-7.7); Neutrophil % 86.8 % (47-70); POSITIVE DIFFERENTIAL YES; Platelet Count 457 K/mm3 (150-450); RBC Distribution Width CV 14.2 % (11.6-14.6); RBC Distribution Width SD 47.2 fl (35.1-43.9); Red Blood Count 3.89 M/mm3 (4.6-6.2); White Blood Count 12.8 K/mm3 (4.4-11.0)
[2021-09-17 14:53] LABS: Differential Indicated SCAN CRITERIA MET
[2021-09-17 15:08] LABS: ALB/GLOB Ratio 0.7 RATIO (0.9-2.4); AST(SGOT) 18 U/L (15-37); Alanine Aminotransfer ALT/SGPT 22 U/L (16-61); Albumin, Serum 2.8 g/dL (3.2-5.0); Alkaline Phosphatase 67 U/L (45-117); Anion Gap 6 (5-15); BUN 21 mg/dL (7-18); BUN/Creat Ratio 10.2 RATIO (10-20); Calcium,Total 8.1 mg/dL (8.5-10.1); Chloride 102 mmol/L (98-107); Creatinine, Serum 2.06 mg/dL (0.70-1.30); EST Glomerular Filtration Rate 35 mL/min (>60); Est Glom Filt Rate - Afr Amer 43 mL/min (>60); Globulin 4.3 g/dL (2.2-4.2); Glucose 182 mg/dL (74-106); Potassium 4.4 mmol/L (3.5-5.1); Protein, Total 7.1 g/dL (6.4-8.2); Sodium Level 134 mmol/L (136-145)
[2021-09-17 15:21] LABS: Anisocytosis RARE; Macrocytosis RARE; Platelet Estimate SLT INC (ADEQ); Red Cell Morphology N CHROM NORMAL (NORM C&C)
[2021-09-17 15:34] LABS: Bacteria 0 SEEN /hpf (None Seen); Mucous, Urine 0 SEEN /hpf (<or=2+); Squamous Epithelial Cells - UA 0 SEEN /hpf (0-5); White Blood Cells 0 SEEN /hpf (0-5)
[2021-09-17 15:47] LABS: Glucose, Dipstick Normal (Normal); Ketone-Dipstick Negative (Negative); Leukocyte Esterase-Dipstick 25 /ul (Negative); Nitrite-Dipstick Negative (Negative); Occult Blood-Urine 250 /ul (Negative); Protein-Dipstick 30 mg/dl (Negative); Specific Gravity, Urine 1.015 (1.002-1.030); Urine Bilirubin Dipstick Negative (Negative); Urine Urobilinogen Normal (Normal)
[2021-09-17 15:55] LABS: Color, Urine Yellow (Yellow); Urine Clarity Sl Cldy (Clear)
[2021-09-17 16:00] VITALS: PULSE 88; RESP 18
[2021-09-17] MEDS: 0.9% Normal Saline 1,000 ML 999 ML IV (16:20)
[2021-09-17 17:23] LABS: Red Blood Cells-Urine 0-5 SEEN /hpf (0-5)
== END 2021-09-17 17:47 | disposition home or self-care (01) ==
PROVIDERS: Emergency Provider Emergency Medicine; Visit Provider Emergency Medicine
DX: R10.9 Unspecified abdominal pain (principal); E11.9 Type 2 diabetes mellitus without complications; R33.9 Retention of urine, unspecified; R32 Unspecified urinary incontinence; R79.89 Other specified abnormal findings of blood chemistry; M19.90 Unspecified osteoarthritis, unspecified site; E78.00 Pure hypercholesterolemia, unspecified; E07.9 Disorder of thyroid, unspecified; Z79.890 Hormone replacement therapy; Z79.899 Other long term (current) drug therapy; Z90.79 Acquired absence of other genital organ(s)
CPT/HCPCS: 51702; 80053; 81001; 85025; 96361; 96374; 96375; 99284; J7030; A4216; J2405